=== PATIENT | male | born 1970 | race African-American/Black ===

== ENCOUNTER 2016-12-17 10:55 | Emergency (ER) | payer MEDICARE, OTHER ==
[~2016-12-17 10:55] MED LIST: CALCIUM CARBONATE PO; CALTRA600D PO; ENSURE PLUS PO; FUNGAL CREAM TOP; GGDM5ML PO; KEPPRA XR500 MG PO; LORTABLIQ PO; MINERAL OIL OT; NATURA2 OPH; PROLIA60 MG/1 ML SC; VITAMIN D3 PO; VITAMIN D31000 UNIT PO
== END 2016-12-17 12:05 | disposition home or self-care (01) ==
LOC: ER 10:55
PROC: 0D20XUZ Change Feeding Device in Upper Intestinal Tract, External Approach (ICD-10-PCS; principal; 2016-12-17)
DX: Z43.1 Encounter for attention to gastrostomy (principal); G80.9 Cerebral palsy, unspecified; Z91.038 Other insect allergy status; Z79.899 Other long term (current) drug therapy
CPT/HCPCS: 99283